=== PATIENT | female | born 1995 | race Asian ===

== ENCOUNTER 2016-08-26 05:43 | Inpatient (IN) | payer BC ==
[2016-08-26] MEDS ORDERED: Misoprostol 200 MCG Tab PO PRN (08:18)
[2016-08-26] MEDS ORDERED: Sodium Chloride 0.9% 10 ML Syringe FLUSH PRN (08:18)
[2016-08-26] MEDS ORDERED: Carboprost Tromethamine 250 MCG/1 ML Amp IM PRN (08:18)
[2016-08-26] MEDS ORDERED: Nalbuphine 10 MG/1 ML Vial IVPUSH PRN (08:18)
[2016-08-26] MEDS ORDERED: Methylergonovine 0.2 MG/1 ML Amp IM PRN (08:18)
[2016-08-26] MEDS ORDERED: Butorphanol 1 MG/ML SDV IVPUSH PRN (08:18)
[2016-08-26] MEDS ORDERED: Lidocaine 1% 50 ML MDV INJECT PRN (08:18)
[2016-08-26] MEDS ORDERED: Ampicillin 2 GM in Sodium Chloride 0.9% 100 ML IV ONE (08:18)
[2016-08-26] MEDS ORDERED: Sodium Chloride 0.9% 2.5 ML Syringe FLUSH PRN (08:18)
[2016-08-26] MEDS ORDERED: Water For Irrigation,Sterile 1,000 ML Container IRR PRN (08:18)
[2016-08-26] MEDS ORDERED: Oxytocin/Lactated Ringers 30 UNIT/500 ML BAG IV SCH (08:30)
[2016-08-26] MEDS: Lactated Ringers 1,000 ML IV SCH ×2 (09:13→10:19)
--- NOTE | 2016-08-26 09:17 | PCM.LDHP ---
L&D History of Present Illness - General Date of Service: 08/26/16 Admit Problem/Dx: Patient Status Order with Admit Dx/Problem 08/26/16 06:03 Patient Status [ADT] Routine 08/26/16 08:18 Patient Status [ADT] Routine Admission Diagnosis/Problem Admission Diagnosis/Problem Source of Information: Patient History Limitations: Reports: No Limitations - History of Present Illness Improves with: Reports: None Worsens with: Reports: None Associated Symptoms: Reports: N - Related Data Allergies/Adverse Reactions: Allergies Allergy/AdvReac Type Severity Reaction Status Date / Time No Known Allergies Allergy Verified 08/26/16 06:03 H&P Review of Systems - Review of Systems: Review Of Systems: See Below General: Reports: No Symptoms HEENT: Reports: No Symptoms Pulmonary: Reports: No Symptoms Cardiovascular: Reports: No Symptoms Gastrointestinal: Reports: No Symptoms Genitourinary: Reports: No Symptoms Musculoskeletal: Reports: No Symptoms Skin: Reports: No Symptoms Psychiatric: Reports: No Symptoms Neurological: Reports: No Symptoms Hematologic/Lymphatic: Reports: No Symptoms Immunologic: Reports: No Symptoms L&D Exam - Exam Exam: See Below - Vital Signs Weight: 67.132 kg - OB Specific Contraction Intensity: Moderate Movement: Active Heart Tones: Present Presentation: Vertex - Watts Score Watts Score Consistency: Soft Watts Score Effacement: 51-70% Watts Score Dilation: > 5 cm Watts Score Infant's Station: -2 - Exam General: Alert, Oriented HEENT: PERRLA, Conjunctiva Clear, EACs Clear, EOMI, Hearing Intact, Mucosa Moist & [place], Nares Patent, Normal Nasal Septum, Posterior Pharynx Clear, TMs Clear Neck: Supple, Trachea Midline Lungs: Clear to Auscultation, Normal Respiratory Effort Cardiovascular: Regular Rate, Regular Rhythm GI/Abdominal Exam: Normal Bowel Sounds, Soft, Non-Tender, No Organomegaly, No Distention, No Abnormal Bruit, No Mass, Pelvis Stable Rectal Exam: Normal Exam, Normal Rectal Tone Genitourinary: Normal external exam, Normal bimanual exam, Normal speculum exam Back Exam: Normal Inspection, Full Range of Motion Extremities: Normal Inspection, Normal Range of Motion, Non-Tender, No Pedal Edema, Normal Capillary Refill Skin: Warm, Dry, Intact Neurological: Cranial Nerves Intact, Reflexes Equal Bilateral Psychiatric: Alert, Normal Affect, Normal Mood - Patient Data Lab Results Last 24 hrs: Laboratory Results - last 24 hr 08/26/16 Range/Units 08:33 WBC 10.46 (4.0-11.0) K/uL RBC 3.97 L (4.30-5.90) M/uL Hgb 10.8 L (12.0-16.0) g/dL Hct 33.9 L (36.0-46.0) % MCV 85.4 (80.0-98.0) fL MCH 27.2 (27.0-32.0) pg MCHC 31.9 (31.0-37.0) g/dL RDW Std Deviation 44.5 (28.0-62.0) fl RDW Coeff of Richardson 15 (11.0-15.0) % Plt Count 168 (150-400) K/uL MPV 10.20 (7.40-12.00) fL Nucleated RBC % 0.0 /100WBC Nucleated RBCs # 0 K/uL Result Diagrams: 08/26/16 08:33 Problem List Initiated/Reviewed/Updated: Yes Orders Last 24hrs: Active Orders 24 hr Category Date Time Status Patient Status [ADT] Routine ADT 08/26/16 06:03 Active Patient Status [ADT] Routine ADT 08/26/16 08:18 Active Heart Tones [RC] CONTINUOUS Care 08/26/16 08:18 Active Non Stress Test [RC] PER UNIT ROUTINE Care 08/26/16 06:03 Active Non Stress Test [RC] PER UNIT ROUTINE Care 08/26/16 08:18 Active May Shower [RC] ASDIRECTED Care 08/26/16 08:18 Active Notify Provider [RC] PRN Care 08/26/16 08:18 Active Up ad Juany [RC] ASDIRECTED Care 08/26/16 06:03 Active Up ad Juany [RC] ASDIRECTED Care 08/26/16 08:18 Active Vaginal Exam [RC] Click To Edit Care 08/26/16 06:03 Active Vaginal Exam [RC] PRN Care 08/26/16 08:18 Active Vital Signs [RC] PER UNIT ROUTINE Care 08/26/16 06:03 Active Vital Signs [RC] PER UNIT ROUTINE Care 08/26/16 08:18 Active TYPE AND SCREEN [BBK] Routine Lab 08/26/16 08:33 Received Ampicillin 1,000 mg Med 08/26/16 13:00 Active Sodium Chloride 0.9% [Normal Saline] 50 ml IV Q4H Butorphanol [Stadol] Med 08/26/16 08:18 Active 1 mg IVPUSH Q1H PRN Carboprost Tromethamine [Hemabate DS] Med 08/26/16 08:18 Active 250 mcg IM ASDIRECTED PRN Lactated Ringers [Ringers, Lactated] 1,000 ml Med 08/26/16 08:30 Active IV ASDIRECTED Lidocaine 1% [Xylocaine 1%] Med 08/26/16 08:18 Active 50 ml INJECT .ONCE PRN Methylergonovine [Methergine] Med 08/26/16 08:18 Active 0.2 mg IM ASDIRECTED PRN Misoprostol [Cytotec] Med 08/26/16 08:18 Active 200 mcg PO .ONCE PRN Nalbuphine [Nubain] Med 08/26/16 08:18 Active 10 mg IVPUSH Q1H PRN Oxytocin/Lactated Ringers [Pitocin in LR 30 Units/500 Med 08/26/16 08:30 Active ML] 30 unit in 500 ml IV TITRATE Sodium Chloride 0.9% [Saline Flush] Med 08/26/16 08:18 Active 10 ml FLUSH ASDIRECTED PRN Sodium Chloride 0.9% [Saline Flush] Med 08/26/16 08:18 Active 2.5 ml FLUSH ASDIRECTED PRN Water For Irrigation,Sterile [Sterile Water for Med 08/26/16 08:18 Active Irrigation] 1,000 ml IRR ASDIRECTED PRN Scalp Electrode [WOMSER] Per Unit Routine Oth 08/26/16 08:18 Ordered Peripheral IV Insertion Adult [OM.PC] Routine Oth 08/26/16 08:18 Ordered Resuscitation Status Routine Resus Stat 08/26/16 06:03 Ordered Medication Orders Butorphanol Tartrate (Stadol) 1 mg IVPUSH Q1H PRN PRN Reason: Pain Carboprost Tromethamine (Hemabate Ds) 250 mcg IM ASDIRECTED PRN PRN Reason: Post Hemorrhage Lactated Ringer's (Ringers, Lactated) 1,000 mls @ 150 mls/hr IV ASDIRECTED KOFFI Last Admin: 08/26/16 09:13 Dose: 150 mls/hr Oxytocin/Lactated Ringer's (Pitocin In Lr 30 Units/500 Ml) 30 unit in 500 mls @ 250 mls/hr IV TITRATE KOFFI PRN Reason: 250 MUNITS/MIN Stop: 08/26/16 10:29 Ampicillin Sodium 1,000 mg/ (Sodium Chloride) 50 mls @ 100 mls/hr IV Q4H KOFFI Lidocaine HCl (Xylocaine 1%) 50 ml INJECT .ONCE PRN PRN Reason: Laceration repair Methylergonovine Maleate (Methergine) 0.2 mg IM ASDIRECTED PRN PRN Reason: Post Hemorrhage Misoprostol (Cytotec) 200 mcg PO .ONCE PRN PRN Reason: Post Hemorrhage Nalbuphine HCl (Nubain) 10 mg IVPUSH Q1H PRN PRN Reason: Pain (severe 7-10) Stop: 08/26/16 10:19 Sodium Chloride (Saline Flush) 10 ml FLUSH ASDIRECTED PRN PRN Reason: Keep Vein Open Sodium Chloride (Saline Flush) 2.5 ml FLUSH ASDIRECTED PRN PRN Reason: Keep Vein Open Sterile Water (Sterile Water For Irrigation) 1,000 ml IRR ASDIRECTED PRN PRN Reason: delivery Assessment/Plan Comment:: Term P1001 in active labor.
[2016-08-26] MEDS ORDERED: Bisacodyl 10 MG Supp RECTAL PRN (12:38)
[2016-08-26] MEDS ORDERED: Ibuprofen 400 MG Tab PO PRN (12:38)
[2016-08-26] MEDS ORDERED: Lanolin 100% Cream 7 GM Tube TOP PRN (12:38)
[2016-08-26] MEDS ORDERED: Benzocaine/Menthol 20%-0.5% Spray 78 GM Cannister TOP PRN (12:38)
[2016-08-26] MEDS ORDERED: Witch Hazel Medicated Pads 40/Jar TOP PRN (12:38)
[2016-08-26] MEDS ORDERED: Docusate Sodium 100 MG Cap PO PRN (12:38)
[2016-08-26] MEDS ORDERED: Acetaminophen 500 MG Tab PO PRN ×2 (12:38)
[2016-08-26] MEDS: Ibuprofen 800 MG Tab PO PRN ×2 (13:08→21:08)
[2016-08-27] MEDS: oxyCODONE 5 MG Tab PO PRN ×2 (01:43→06:02)
--- NOTE | 2016-08-27 02:01 | OR ---
SURGEON: En Haines MD DATE OF PROCEDURE: Ms. Johnson is 21. She is para 1-0-0-1. She is term. She is followed in our clinic primarily by our nurse shadowgraph scale operator. The patient is admitted in active labor. At the time of admission, she was 5 cm complete, vertex, and -1 and intact. She has a positive GBS status, so we started her on antibiotic according to protocol, and the patient declined epidural anesthesia. She continued to progress without any problem. She became complete and at that time, spontaneous rupture of the membranes happened. The patient has received 2 doses of antibiotic prior to the rupture of the membranes. The patient commenced pushing, and she was able to accomplish normal spontaneous vaginal delivery of a male fetus. Cried immediately. score was reported to be 8 and 9. The weight is not available at this time. The placenta delivered spontaneous, complete, and intact. There was no perineal or labial laceration. There was no need for episiotomy. Estimated blood loss was 250 to 300 mL. heart rate was category 1 through the entire process of labor. There was no complication. CRISPIN / MAE /[id number]
[2016-08-27 08:50] VITALS: BP 101/60
--- NOTE | 2016-08-27 09:07 | PCM.PNPP ---
- General Info Date of Service: 08/27/16 Functional Status: Reports: Pain Controlled - Review of Systems General: Reports: No Symptoms HEENT: Reports: No Symptoms Pulmonary: Reports: No Symptoms Cardiovascular: Reports: No Symptoms Gastrointestinal: Reports: No Symptoms Genitourinary: Reports: No Symptoms Musculoskeletal: Reports: No Symptoms Skin: Reports: No Symptoms Neurological: Reports: No Symptoms Psychiatric: Reports: No Symptoms - General Info Date of Service: 08/27/16 - Patient Data Vital Signs - most recent: Last Vital Signs Temp 36.7 C 08/27/16 08:47 Pulse 97 08/27/16 08:47 Resp 18 08/27/16 08:47 BP 101/60 08/27/16 08:47 Pulse Ox 97 08/27/16 08:47 Weight - most recent: 67.132 kg Lab Results - last 24 hrs: Laboratory Results - last 24 hr 08/26/16 08/27/16 Range/Units 08:33 04:48 Hgb 9.7 L (12.0-16.0) g/dL Hct 30.6 L (36.0-46.0) % Blood Type O POSITIVE Antibody Screen NEGATIVE Med Orders - Current: Current Medications Acetaminophen (Tylenol Extra Strength) 500 mg PO Q4H PRN PRN Reason: Pain Acetaminophen (Tylenol Extra Strength) 1,000 mg PO Q4H PRN PRN Reason: Pain Benzocaine/Menthol (Dermoplast Pain Relief 20%-0.5% [place]) 78 gm TOP ASDIRECTED PRN PRN Reason: Perineal Comfort Measure Bisacodyl (Dulcolax) 10 mg RECTAL .ONCE PRN PRN Reason: Constipation Docusate Sodium (Colace) 100 mg PO BID PRN PRN Reason: Constipation Emollient Ointment (Lansinoh Hpa) 0 gm TOP ASDIRECTED PRN PRN Reason: Sore Nipples Ibuprofen (Motrin) 400 mg PO Q4H PRN PRN Reason: Pain Ibuprofen (Motrin) 800 mg PO Q6H PRN PRN Reason: Pain Last Admin: 08/26/16 21:08 Dose: 800 mg Oxycodone HCl (Oxycodone) 5 mg PO Q2H PRN PRN Reason: Pain Last Admin: 08/27/16 06:02 Dose: 5 mg Witch Cherry (Tucks) 1 pad TOP ASDIRECTED PRN PRN Reason: comfort care Discontinued Medications Butorphanol Tartrate (Stadol) 1 mg IVPUSH Q1H PRN PRN Reason: Pain Carboprost Tromethamine (Hemabate Ds) 250 mcg IM ASDIRECTED PRN PRN Reason: Post Hemorrhage Ampicillin Sodium 2 gm/ Sodium (Chloride) 100 mls @ 200 mls/hr IV ONETIME ONE Stop: 08/26/16 08:47 Last Admin: 08/26/16 09:14 Dose: 200 mls/hr Lactated Ringer's (Ringers, Lactated) 1,000 mls @ 150 mls/hr IV ASDIRECTED KOFFI Last Admin: 08/26/16 10:19 Dose: 150 mls/hr Oxytocin/Lactated Ringer's (Pitocin In Lr 30 Units/500 Ml) 30 unit in 500 mls @ 250 mls/hr IV TITRATE KOFFI PRN Reason: 250 MUNITS/MIN Stop: 08/26/16 10:29 Last Admin: 08/26/16 12:08 Dose: 250 munits/min, 250 mls/hr Ampicillin Sodium 1,000 mg/ (Sodium Chloride) 50 mls @ 100 mls/hr IV Q4H KOFFI Lidocaine HCl (Xylocaine 1%) 50 ml INJECT .ONCE PRN PRN Reason: Laceration repair Methylergonovine Maleate (Methergine) 0.2 mg IM ASDIRECTED PRN PRN Reason: Post Hemorrhage Misoprostol (Cytotec) 200 mcg PO .ONCE PRN PRN Reason: Post Hemorrhage Nalbuphine HCl (Nubain) 10 mg IVPUSH Q1H PRN PRN Reason: Pain (severe 7-10) Stop: 08/26/16 10:19 Sodium Chloride (Saline Flush) 10 ml FLUSH ASDIRECTED PRN PRN Reason: Keep Vein Open Sodium Chloride (Saline Flush) 2.5 ml FLUSH ASDIRECTED PRN PRN Reason: Keep Vein Open Sterile Water (Sterile Water For Irrigation) 1,000 ml IRR ASDIRECTED PRN PRN Reason: delivery - Infant Interaction Infant Disposition, : [place] in Room with Family Interaction: Holding Infant Feeding: Attempted ; Nursed Fair/Poor Support Person: - Recovery Exam Fundal Tone: Firm Fundal Level: At Umbilicus Fundal Placement: Midline Lochia Amount: Scant Lochia Color: Rubra/Red Perineum Description: Intact, Minimal Bruising/Swelling Episiotomy/Laceration: None Bladder Status: Voiding Urinary Elimination: Voided - Exam General: alert, oriented HEENT: Pupils equal Neck: supple Lungs: Clear to Auscultation, Normal Respiratory Effort Cardiovascular: Regular Rate, Regular Rhythm GI/Abdominal Exam: Normal Bowel Sounds, Soft, Non-Tender, No Organomegaly, No Distention, No Abnormal Bruit, No Mass, Pelvis Stable Extremities: Normal Inspection, Normal Range of Motion, Non-Tender, No Pedal Edema, Normal Capillary Refill Skin: warm, dry, intact Wound/Incisions: healing well Neurological: no new focal deficit Psy/Mental Status: alert, normal affect, normal mood - Problem List Review Problem List Initiated/Reviewed/Updated: Yes - My Orders Last 24 Hours: My Active Orders 08/26/16 08:18 Heart Tones [RC] CONTINUOUS Non Stress Test [RC] PER UNIT ROUTINE May Shower [RC] ASDIRECTED Notify Provider [RC] PRN Up ad Juany [RC] ASDIRECTED Vaginal Exam [RC] PRN Vital Signs [RC] PER UNIT ROUTINE 08/26/16 12:38 Patient Status [ADT] Routine May Shower [RC] ASDIRECTED Up ad Juany [RC] ASDIRECTED Vital Signs [RC] PER UNIT ROUTINE Acetaminophen [Tylenol Extra Strength] 1,000 mg PO Q4H PRN Acetaminophen [Tylenol Extra Strength] 500 mg PO Q4H PRN Benzocaine/Menthol [Dermoplast Pain Relief 20%-0.5% [place]] 78 gm TOP ASDIRECTED PRN Bisacodyl [Dulcolax] 10 mg RECTAL .ONCE PRN Docusate Sodium [Colace] 100 mg PO BID PRN Ibuprofen [Motrin] 400 mg PO Q4H PRN Ibuprofen [Motrin] 800 mg PO Q6H PRN Lanolin [Lansinoh HPA] See Dose Instructions TOP ASDIRECTED PRN Witch Cherry [Tucks] 1 pad TOP ASDIRECTED PRN oxyCODONE 5 mg PO Q2H PRN Assess Lochia [WOMSER] Per Unit Routine Assess Uterine Involution [WOMSER] Per Unit Routine Peripheral IV Discontinue [OM.PC] Routine Resuscitation Status Routine 08/27/16 Breakfast Regular Diet [DIET] - Assessment Assessment:: Status post normal spontaneous vaginal delivery doing well rescind the patient home today - Plan Plan:: Term P1001 in active labor.
== END 2016-08-27 15:30 | disposition home or self-care (01) | DRG 560 ==
LOC: MW.OBCHECK 05:43 → MW.OB 05:47 → MW.OBCHECK 06:03 → MW.OB 06:03 → OBSVTOIN 12:07 → MW.OB 15:22
PROVIDERS: ADMIT Obstetrics & Gynecology; ATTEND Obstetrics & Gynecology
PROC: 10E0XZZ Delivery of Products of Conception, External Approach (ICD-10-PCS; principal; 2016-08-26)
DX: O80 Encounter for full-term uncomplicated delivery (principal); Z3A.40 40 weeks gestation of pregnancy; Z37.0 Single live birth
CPT/HCPCS: 36415; 59025; 85014; 85018; 85027; 86850; 86900; 86901; A9270-GY; J0290; J7030; J7120

== ENCOUNTER 2018-02-17 11:45 | Inpatient (IN) | payer BC ==
[2018-02-17] MEDS ORDERED: Sodium Chloride 0.9% 2.5 ML Syringe FLUSH PRN (12:29)
[2018-02-17] MEDS ORDERED: Water For Irrigation,Sterile 1,000 ML Container IRR PRN (12:29)
[2018-02-17] MEDS ORDERED: Methylergonovine 0.2 MG/1 ML Amp IM PRN (12:29)
[2018-02-17] MEDS ORDERED: Butorphanol 1 MG/ML SDV IVPUSH PRN (12:29)
[2018-02-17] MEDS ORDERED: Lidocaine 1% 50 ML MDV INJECT PRN (12:29)
[2018-02-17] MEDS ORDERED: Misoprostol 200 MCG Tab PO PRN (12:29)
[2018-02-17] MEDS ORDERED: Carboprost Tromethamine 250 MCG/1 ML Amp IM PRN (12:29)
[2018-02-17] MEDS ORDERED: Tranexamic Acid 1,000 MG in Sodium Chloride 0.9% 100 ML IV PRN (12:29)
[2018-02-17] MEDS ORDERED: Nalbuphine 10 MG/1 ML Vial IVPUSH PRN (12:29)
[2018-02-17] MEDS ORDERED: Sodium Chloride 0.9% 10 ML Syringe FLUSH PRN (12:29)
[2018-02-17] MEDS ORDERED: Oxytocin/0.9 % Sodium Chloride 30 UNIT/500 ML BAG IV SCH (12:30)
[2018-02-17] MEDS: Lactated Ringers 1,000 ML IV SCH ×2 (12:30→14:45)
--- NOTE | 2018-02-17 12:49 | PCM.LDHP ---
L&D History of Present Illness - General Date of Service: 02/17/18 Admit Problem/Dx: Patient Status Order with Admit Dx/Problem 02/17/18 12:29 Patient Status [ADT] Routine Admission Diagnosis/Problem Admission Diagnosis/Problem Source of Information: Patient History Limitations: Reports: No Limitations - History of Present Illness Improves with: Reports: None Worsens with: Reports: None Associated Symptoms: Reports: N - Related Data Allergies/Adverse Reactions: Allergies Allergy/AdvReac Type Severity Reaction Status Date / Time No Known Allergies Allergy Verified 02/17/18 12:29 Home Medications: Home Meds [id number]/Ferrous Fumarate/FA [ Vitamin Tablet] 1 tab PO DAILY 02/17/18 [ History] Social & Family History - Family History Family Medical History: Noncontributory - Caffeine Use Caffeine Use: Reports: None H&P Review of Systems - Review of Systems: Review Of Systems: See Below General: Reports: No Symptoms HEENT: Reports: No Symptoms Pulmonary: Reports: No Symptoms Cardiovascular: Reports: No Symptoms Gastrointestinal: Reports: No Symptoms Genitourinary: Reports: No Symptoms Musculoskeletal: Reports: No Symptoms Skin: Reports: No Symptoms Psychiatric: Reports: No Symptoms Neurological: Reports: No Symptoms Hematologic/Lymphatic: Reports: No Symptoms Immunologic: Reports: No Symptoms L&D Exam - Exam Exam: See Below - Vital Signs Weight: 65.771 kg - OB Specific Fundal Height In cm: 36 Contraction Intensity: Moderate Movement: Active Heart Tones: Present Presentation: Vertex - Watts Score Watts Score Cervix Position: Anterior Watts Score Consistency: Soft Watts Score Effacement: >80% Watts Score Dilation: > 5 cm Watts Score Infant's Station: -1 ,0 Watts Score Total: 12 - Exam General: Alert, Oriented HEENT: PERRLA, Conjunctiva Clear, EACs Clear, EOMI, Hearing Intact, Mucosa Moist & [place], Nares Patent, Normal Nasal Septum, Posterior Pharynx Clear, TMs Clear Neck: Supple, Trachea Midline Lungs: Clear to Auscultation, Normal Respiratory Effort Cardiovascular: Regular Rate, Regular Rhythm GI/Abdominal Exam: Normal Bowel Sounds, Soft, Non-Tender, No Organomegaly, No Distention, No Abnormal Bruit, No Mass, Pelvis Stable Rectal Exam: Normal Exam, Normal Rectal Tone Genitourinary: Normal external exam, Normal bimanual exam, Normal speculum exam Back Exam: Normal Inspection, Full Range of Motion Extremities: Normal Inspection, Normal Range of Motion, Non-Tender, No Pedal Edema, Normal Capillary Refill Skin: Warm, Dry, Intact Neurological: Cranial Nerves Intact, Reflexes Equal Bilateral Psychiatric: Alert, Normal Affect, Normal Mood Problem List Initiated/Reviewed/Updated: Yes Orders Last 24hrs: Active Orders 24 hr Category Date Time Status Patient Status [ADT] Routine ADT 02/17/18 12:29 Active Heart Tones [RC] CONTINUOUS Care 02/17/18 12:29 Active Non Stress Test [RC] PER UNIT ROUTINE Care 02/17/18 12:29 Active May Shower [RC] ASDIRECTED Care 02/17/18 12:29 Active Notify Provider [RC] PRN Care 02/17/18 12:29 Active Up ad Juany [RC] ASDIRECTED Care 02/17/18 12:29 Active Vaginal Exam [RC] PRN Care 02/17/18 12:29 Active Vital Signs [RC] PER UNIT ROUTINE Care 02/17/18 12:29 Active CBC W/O DIFF,HEMOGRAM [HEME] Routine Lab 02/17/18 12:38 Received TYPE AND SCREEN [BBK] Routine Lab 02/17/18 12:38 Received Butorphanol [Stadol] Med 02/17/18 12:29 Active 1 mg IVPUSH Q1H PRN Carboprost Tromethamine [Hemabate DS] Med 02/17/18 12:29 Active 250 mcg IM ASDIRECTED PRN Lactated Ringers [Ringers, Lactated] 1,000 ml Med 02/17/18 12:30 Active IV ASDIRECTED Lidocaine 1% [Xylocaine 1%] Med 02/17/18 12:29 Active 50 ml INJECT ONETIME PRN Methylergonovine [Methergine] Med 02/17/18 12:29 Active 0.2 mg IM ASDIRECTED PRN Nalbuphine [Nubain] Med 02/17/18 12:29 Active 10 mg IVPUSH Q1H PRN Oxytocin/0.9 % Sodium Chloride [Oxytocin 30 Unit/500 ML Med 02/17/18 12:30 Active -NS] 30 unit in 500 ml IV TITRATE Sodium Chloride 0.9% [Saline Flush] Med 02/17/18 12:29 Active 10 ml FLUSH ASDIRECTED PRN Sodium Chloride 0.9% [Saline Flush] Med 02/17/18 12:29 Active 2.5 ml FLUSH ASDIRECTED PRN Tranexamic Acid [Cyklokapron] 1,000 mg Med 02/17/18 12:29 Active Sodium Chloride 0.9% [Normal Saline] 100 ml IV ONETIME Water For Irrigation,Sterile [Sterile Water for Med 02/17/18 12:29 Active Irrigation] 1,000 ml IRR ASDIRECTED PRN miSOPROStol [Cytotec] Med 02/17/18 12:29 Active 200 mcg PO ONETIME PRN Scalp Electrode [WOMSER] Per Unit Routine Oth 02/17/18 12:29 Ordered Peripheral IV Insertion Adult [OM.PC] Routine Oth 02/17/18 12:29 Ordered Resuscitation Status Routine Resus Stat 02/17/18 12:29 Ordered Medication Orders Butorphanol Tartrate (Stadol) 1 mg IVPUSH Q1H PRN PRN Reason: Pain Carboprost Tromethamine (Hemabate Ds) 250 mcg IM ASDIRECTED PRN PRN Reason: Post Hemorrhage Lactated Ringer's (Ringers, Lactated) 1,000 mls @ 150 mls/hr IV ASDIRECTED KOFFI Oxytocin/Sodium Chloride (Oxytocin 30 Unit/500 Ml-Ns) 30 unit in 500 mls @ 999 mls/hr IV TITRATE KOFFI Tranexamic Acid 1,000 mg/ (Sodium Chloride) 110 mls @ 660 mls/hr IV ONETIME PRN PRN Reason: Bleeding Lidocaine HCl (Xylocaine 1%) 50 ml INJECT ONETIME PRN PRN Reason: Laceration repair Methylergonovine Maleate (Methergine) 0.2 mg IM ASDIRECTED PRN PRN Reason: Post Hemorrhage Misoprostol (Cytotec) 200 mcg PO ONETIME PRN PRN Reason: Post Hemorrhage Nalbuphine HCl (Nubain) 10 mg IVPUSH Q1H PRN PRN Reason: Pain (severe 7-10) Sodium Chloride (Saline Flush) 10 ml FLUSH ASDIRECTED PRN PRN Reason: Keep Vein Open Sodium Chloride (Saline Flush) 2.5 ml FLUSH ASDIRECTED PRN PRN Reason: Keep Vein Open Sterile Water (Sterile Water For Irrigation) 1,000 ml IRR ASDIRECTED PRN PRN Reason: delivery Assessment/Plan Comment:: Term patient in active labor anticipating normal spontaneous vaginal delivery
[2018-02-17] MEDS ORDERED: Docusate Sodium 100 MG Cap PO PRN (15:35)
[2018-02-17] MEDS ORDERED: Bisacodyl 10 MG Supp RECTAL PRN (15:35)
[2018-02-17] MEDS ORDERED: Lanolin 100% Cream 7 GM Tube TOP PRN (15:35)
[2018-02-17] MEDS ORDERED: Benzocaine/Menthol 20%-0.5% Spray 78 GM Cannister TOP PRN (15:35)
[2018-02-17] MEDS ORDERED: Witch Hazel Medicated Pads 40/Jar TOP PRN (15:35)
[2018-02-17] MEDS ORDERED: Acetaminophen 500 MG Tab PO PRN ×2 (15:35)
[2018-02-17] MEDS ORDERED: oxyCODONE 5 MG Tab PO PRN (15:35)
[2018-02-17] MEDS ORDERED: Ibuprofen 400 MG Tab PO PRN (15:35)
[2018-02-17] MEDS: Ibuprofen 800 MG Tab PO PRN (16:17)
--- NOTE | 2018-02-17 17:42 | OR ---
SURGEON: En Haines MD DATE OF PROCEDURE: 02/17/2018 Ms. Johnson is a 22-year-old, she is para 2-0-0-2, she is followed in our clinic primarily by our nurse vacuum forming machine operator. She is term. She was presented to Labor and Delivery in active labor and at the time of admission, she was 5 to 6 cm, 90 vertex, and -2 with intact membrane. She was admitted to Labor and Delivery and later on, she became complete and she was able to accomplish normal spontaneous vaginal delivery of a female fetus, cried immediately. score was not available at this time, and then the placenta was delivered 10 minutes later without any problem. Estimated blood loss was 250 to 300 mL. heart rate was category 1 through the entire process of labor. There was no complication through the process of Labor and Delivery. CRISPIN / MAE /[id number]
[2018-02-18] MEDS: Ibuprofen 800 MG Tab PO PRN ×2 (04:01→15:19)
--- NOTE | 2018-02-18 10:01 | PCM.PNPP ---
- General Info Date of Service: 02/18/18 Functional Status: Reports: Pain Controlled - Review of Systems General: Reports: No Symptoms HEENT: Reports: No Symptoms Pulmonary: Reports: No Symptoms Cardiovascular: Reports: No Symptoms Gastrointestinal: Reports: No Symptoms Genitourinary: Reports: No Symptoms Musculoskeletal: Reports: No Symptoms Skin: Reports: No Symptoms Neurological: Reports: No Symptoms Psychiatric: Reports: No Symptoms - General Info Date of Service: 02/18/18 - Patient Data Vital Signs - Most Recent: Last Vital Signs Temp 36.4 C 02/18/18 08:25 Pulse 97 02/17/18 20:09 Resp 16 02/18/18 08:25 BP 105/72 02/18/18 05:00 Pulse Ox 99 02/18/18 08:25 Weight - Most Recent: 65.771 kg Lab Results - Last 24 Hours: Laboratory Results - last 24 hr 02/17/18 02/17/18 02/18/18 Range/Units 12:38 12:38 06:07 WBC 15.77 H (4.0-11.0) K/uL RBC 3.94 L (4.30-5.90) M/uL Hgb 11.6 L 8.4 L (12.0-16.0) g/dL Hct 34.6 L 26.3 L (36.0-46.0) % MCV 87.8 (80.0-98.0) fL MCH 29.4 (27.0-32.0) pg MCHC 33.5 (31.0-37.0) g/dL RDW Std Deviation 45.3 (28.0-62.0) fl RDW Coeff of Richardson 14 (11.0-15.0) % Plt Count 162 (150-400) K/uL MPV 9.80 (7.40-12.00) fL Nucleated RBC % 0.0 /100WBC Nucleated RBCs # 0 K/uL Blood Type O POSITIVE Antibody Screen NEGATIVE Med Orders - Current: Current Medications Acetaminophen (Tylenol Extra Strength) 500 mg PO Q4H PRN PRN Reason: Pain Acetaminophen (Tylenol Extra Strength) 1,000 mg PO Q4H PRN PRN Reason: Pain Benzocaine/Menthol (Dermoplast Pain Relief 20%-0.5% Byron) 78 gm TOP ASDIRECTED PRN PRN Reason: Perineal Comfort Measure Bisacodyl (Dulcolax) 10 mg RECTAL ONETIME PRN PRN Reason: Constipation Carboprost Tromethamine (Hemabate Ds) 250 mcg IM ASDIRECTED PRN PRN Reason: Post Hemorrhage Docusate Sodium (Colace) 100 mg PO BID PRN PRN Reason: Constipation Emollient Ointment (Lansinoh Hpa) 0 gm TOP ASDIRECTED PRN PRN Reason: Sore Nipples Lactated Ringer's (Ringers, Lactated) 1,000 mls @ 150 mls/hr IV ASDIRECTED [facility] [place] Last Admin: 02/17/18 14:45 Dose: 150 mls/hr Tranexamic Acid 1,000 mg/ (Sodium Chloride) 110 mls @ 660 mls/hr IV ONETIME PRN PRN Reason: Bleeding Ibuprofen (Motrin) 400 mg PO Q4H PRN PRN Reason: Pain Ibuprofen (Motrin) 800 mg PO Q6H PRN PRN Reason: Pain Last Admin: 02/18/18 04:01 Dose: 800 mg Methylergonovine Maleate (Methergine) 0.2 mg IM ASDIRECTED PRN PRN Reason: Post Hemorrhage Misoprostol (Cytotec) 200 mcg PO ONETIME PRN PRN Reason: Post Hemorrhage Oxycodone HCl (Oxycodone) 5 mg PO Q2H PRN PRN Reason: Pain Last Admin: 02/18/18 04:01 Dose: 5 mg Sodium Chloride (Saline Flush) 10 ml FLUSH ASDIRECTED PRN PRN Reason: Keep Vein Open Sodium Chloride (Saline Flush) 2.5 ml FLUSH ASDIRECTED PRN PRN Reason: Keep Vein Open Witch Cherry (Tucks) 1 pad TOP ASDIRECTED PRN PRN Reason: comfort care Discontinued Medications Butorphanol Tartrate (Stadol) 1 mg IVPUSH Q1H PRN PRN Reason: Pain Oxytocin/Sodium Chloride (Oxytocin 30 Unit/500 Ml-Ns) 30 unit in 500 mls @ 999 mls/hr IV TITRATE [facility] [place] Last Admin: 02/17/18 15:27 Dose: 999 mls/hr Lidocaine HCl (Xylocaine 1%) 50 ml INJECT ONETIME PRN PRN Reason: Laceration repair Nalbuphine HCl (Nubain) 10 mg IVPUSH Q1H PRN PRN Reason: Pain (severe 7-10) Sterile Water (Sterile Water For Irrigation) 1,000 ml IRR ASDIRECTED PRN PRN Reason: delivery - Interaction Disposition, : [place] in Room with Family Interaction: Holding Feeding: Attempted ; Nursed Fair/Poor Support Person: Significant Other - Recovery Exam Fundal Tone: Firm Fundal Level: 2 Fingerbreadths Below Umbilicus Fundal Placement: Midline Lochia Amount: Scant Lochia Color: Rubra/Red Perineum Description: Intact, Minimal Bruising/Swelling Episiotomy/Laceration: Approximated Bladder Status: Voiding Urinary Elimination: Voided - Exam General: Alert, Oriented HEENT: Pupils Equal Neck: Supple Lungs: Clear to Auscultation, Normal Respiratory Effort Cardiovascular: Regular Rate, Regular Rhythm GI/Abdominal Exam: Normal Bowel Sounds, Soft, Non-Tender, No Organomegaly, No Distention, No Abnormal Bruit, No Mass, Pelvis Stable Extremities: Normal Inspection, Normal Range of Motion, Non-Tender, No Pedal Edema, Normal Capillary Refill Skin: Warm, Dry, Intact Wound/Incisions: Healing Well Neurological: No New Focal Deficit Psy/Mental Status: Alert, Normal Affect, Normal Mood - Problem List Review Problem List Initiated/Reviewed/Updated: Yes - My Orders Last 24 Hours: My Active Orders 02/17/18 12:29 May Shower [RC] ASDIRECTED Notify Provider [RC] PRN Vital Signs [RC] PER UNIT ROUTINE Carboprost Tromethamine [Hemabate DS] 250 mcg IM ASDIRECTED PRN Methylergonovine [Methergine] 0.2 mg IM ASDIRECTED PRN Sodium Chloride 0.9% [Saline Flush] 10 ml FLUSH ASDIRECTED PRN Sodium Chloride 0.9% [Saline Flush] 2.5 ml FLUSH ASDIRECTED PRN Tranexamic Acid [Cyklokapron] 1,000 mg Sodium Chloride 0.9% [Normal Saline] 100 ml IV ONETIME miSOPROStol [Cytotec] 200 mcg PO ONETIME PRN 02/17/18 12:30 Lactated Ringers [Ringers, Lactated] 1,000 ml IV ASDIRECTED 02/17/18 15:35 Patient Status [ADT] Routine June Shower [RC] ASDIRECTED Up ad Juany [RC] ASDIRECTED Vital Signs [RC] PER UNIT ROUTINE Acetaminophen [Tylenol Extra Strength] 1,000 mg PO Q4H PRN Acetaminophen [Tylenol Extra Strength] 500 mg PO Q4H PRN Benzocaine/Menthol [Dermoplast Pain Relief 20%-0.5% Byron] 78 gm TOP ASDIRECTED PRN Bisacodyl [Dulcolax] 10 mg RECTAL ONETIME PRN Docusate Sodium [Colace] 100 mg PO BID PRN Ibuprofen [Motrin] 400 mg PO Q4H PRN Ibuprofen [Motrin] 800 mg PO Q6H PRN Lanolin [Lansinoh HPA] See Dose Instructions TOP ASDIRECTED PRN Witch Cherry [Tucks] 1 pad TOP ASDIRECTED PRN oxyCODONE 5 mg PO Q2H PRN Assess Lochia [WOMSER] Per Unit Routine Assess Uterine Involution [WOMSER] Per Unit Routine Peripheral IV Discontinue [OM.PC] Routine Resuscitation Status Routine 02/18/18 Breakfast Regular Diet [DIET] - Plan Plan:: Term patient in active labor anticipating normal spontaneous vaginal delivery
[2018-02-18 20:22] VITALS: BP 102/59
== END 2018-02-18 22:00 | disposition home or self-care (01) | DRG 560 ==
LOC: MW.OBCHECK 11:45 → MW.OB 11:53 → MW.OBCHECK 12:29 → MW.OB 12:29 → OBSVTOIN 15:26 → MW.OB 22:18
PROVIDERS: ADMIT Obstetrics & Gynecology; ATTEND Obstetrics & Gynecology
PROC: 10E0XZZ Delivery of Products of Conception, External Approach (ICD-10-PCS; principal; 2018-02-17)
DX: O80 Encounter for full-term uncomplicated delivery (principal); Z3A.41 41 weeks gestation of pregnancy; Z37.0 Single live birth
CPT/HCPCS: 36415; 59025; 59409; 85014; 85018; 85027; 86850; 86900; 86901; A9270-GY; J2590; J7120